=== PATIENT | female | born 1975 | race Caucasian/White ===

== ENCOUNTER 2017-11-05 10:00 | Outpatient (CLI) | payer BC, SELFPAY ==
--- NOTE | 2017-11-11 13:28 | DI.MAMMO_ITS ---
SYMPTOMS/DIAGNOSIS: SCREENING, Z12.31 BILATERAL SCREENING MAMMOGRAM: Mammograms were interpreted according to the usual protocol including computer analysis with CAD system, tomosynthesis and C view imaging. Comparison is made with exams from 2009 and 2015. The breasts are composed of heterogeneously dense fibroglandular tissue, breast density category C. No suspicious masses or suspicious microcalcifications are seen. There has been no significant change. IMPRESSION: Category 1C, negative mammogram. Yearly screening mammography is recommended. [facility] ASSESSMENT OF FINDINGS: Negative. Category 1. Patient will receive a letter notifying them of these results. Bi-RADS category C. The breasts are heterogeneously dense, which may obscure small masses.
== END 2017-11-05 10:20 ==
PROVIDERS: PCP Physician Assistant Medical; Visit Provider Nurse Practitioner Family
DX: Z12.31 Encounter for screening mammogram for malignant neoplasm of breast (principal)
CPT/HCPCS: 77063; 77067

== ENCOUNTER 2017-11-05 16:43 | Outpatient (REF) | payer BC, SELFPAY ==
--- NOTE | 2017-11-05 13:30 | PAPFT_PTH ---
PATIENT: Aida Gonzales LOC: [facility] U#:[id number] AGE/SX: 42/F ROOM: RE11/05/[address]: MURRAY Gross : 1975 BED: DIS: 11/05/2017 SPEC #: [id number] RECD: 11/05/17 17:52 STATUS: ASHLY [place] #: [id number] ANDRES: 11/05/17 13:[address]: Juliet Decker [facility] Cytology RECD BY: Teri Barcenas ENTERED: 11/05/17 17:52 SP TYPE: PAPFT LORENA DR: Sun Rowland MD Tissues: 1 - CX/ENDOCX FOR PAP SMEARS Procedures: PAP THIN PREP/[facility]VM Screening HPV DNA PROBE Comments: [id number]
== END 2017-11-05 17:03 ==
LOC: LBN 16:43
PROVIDERS: PCP Family Medicine; Visit Provider Nurse Practitioner Family
DX: Z12.4 Encounter for screening for malignant neoplasm of cervix (principal); Z11.51 Encounter for screening for human papillomavirus (HPV)
CPT/HCPCS: 88142; 87624

== ENCOUNTER 2018-11-24 14:32 | Outpatient (REF) | payer BC, SELFPAY ==
--- NOTE | 2018-11-24 14:00 | PAPFT_PTH ---
PATIENT: Aida Gonzales LOC: [facility] U#:[id number] AGE/SX: 43/F ROOM: RE11/24/[address]: MURRAY Gross : 1975 BED: DIS: 11/24/2018 SPEC #: [id number] RECD: 11/24/18 18:16 STATUS: ASHLY REQ #: [id number] ANDRES: 11/24/18 14:[address]: Juliet Decker DEPT: [facility] Cytology RECD BY: Teri Barcenas ENTERED: 11/24/18 18:16 SP TYPE: PAPFT LORENA DR: Michael Anaya Tissues: 1 - CX/ENDOCX FOR PAP SMEARS Procedures: PAP THIN PREP/UVM Screening Comments: [id number]
== END 2018-11-24 14:52 ==
LOC: LBN 14:32
PROVIDERS: PCP Physician Assistant Medical; Visit Provider Nurse Practitioner Family
DX: Z12.4 Encounter for screening for malignant neoplasm of cervix (principal)
CPT/HCPCS: 88142

== ENCOUNTER 2018-12-22 01:17 | Outpatient (CLI) | payer BC, SELFPAY ==
--- NOTE | 2018-12-22 11:00 | DI.MAMMO_ITS ---
EXAM: MG MAMMO SCREENING CLINICAL HISTORY: Screening, Z12.39 TECHNIQUE: Mammograms were interpreted according to the usual protocol including computer analysis w [employer] CAD system, tomosynthesis and C-view imaging. COMPARISON: [id number] FINDINGS: The breasts are composed of heterogeneously dense tissue, which may obscure small masses, breast dens ity category C. There are no suspicious masses or suspicious microcalcifications. There has been no significant chagne when compared with prior images. IMPRESSION: Category 1, negative mammogram. Routine yearly screening is recommended. BI-RADS Cat 1 - Negative Breast Density - Category C - Heterogeneously dense
== END 2018-12-22 01:37 ==
PROVIDERS: PCP Physician Assistant Medical; Visit Provider Nurse Practitioner Family
DX: Z12.31 Encounter for screening mammogram for malignant neoplasm of breast (principal)
CPT/HCPCS: 77063; 77067

== ENCOUNTER 2019-10-07 10:47 | Outpatient (REF) | payer SELFPAY ==
[2019-10-07 22:01] LABS: Anion Gap 10.5 mmol/L (3-11); BUN 15 mg/dL (7-18); CO2 23.5 mmol/L (21.0-32.0); CREATININE 0.76 mg/dL (0.55-1.02); Calcium 9.1 mg/dL (8.5-10.1); Calculated LDL 114 mg/dL (<100); Chloride 104 mmol/L (98-107); Cholesterol 197 mg/dL (<200); Glucose 91 mg/dL (74-106); HDL Cholesterol 49 mg/dL (40-60); Potassium 4.1 mmol/L (3.5-5.1); Sodium 138 mmol/L (136-145); Triglyceride 171 mg/dL (<150)
== END 2019-10-07 11:07 ==
LOC: NCHCN 10:47
PROVIDERS: PCP Physician Assistant Medical; Visit Provider Physician Assistant Medical
DX: M79.606 Pain in leg, unspecified (principal); Z00.00 Encounter for general adult medical examination without abnormal findings
CPT/HCPCS: 80048; 80061; 83735

== ENCOUNTER 2019-11-26 16:24 | Outpatient (REF) | payer OTHER, SELFPAY ==
--- NOTE | 2019-11-26 15:45 | PAPFT_PTH ---
PATIENT: Aida Gonzales LOC: [facility] U#:[id number] AGE/SX: 44/F ROOM: RE11/26/[address]: MURRAY Gross : 1975 BED: DIS: 11/26/2019 SPEC #: [id number] RECD: 11/26/19 17:45 STATUS: ASHLY REQ #: [id number] ANDRES: 11/26/19 15:[address]: Juliet Decker DEPT: [facility] Cytology RECD BY: Teri Barcenas ENTERED: 11/26/19 17:46 SP TYPE: PAPFT OTHR DR: Michael Anaya Tissues: 1 - CX/ENDOCX FOR PAP SMEARS Procedures: PAP THIN PREP/UVM Screening HPV DNA PROBE Comments: [id number]
== END 2019-11-26 16:44 ==
LOC: LBN 16:24
PROVIDERS: PCP Physician Assistant Medical; Visit Provider Nurse Practitioner Family
DX: Z12.4 Encounter for screening for malignant neoplasm of cervix (principal); Z11.51 Encounter for screening for human papillomavirus (HPV)
CPT/HCPCS: 88142; 87624

== ENCOUNTER 2019-12-24 02:20 | Outpatient (CLI) | payer OTHER, SELFPAY ==
--- NOTE | 2019-12-24 08:50 | DI.MAMMO_ITS ---
EXAM: MAMMO SCREENING CLINICAL HISTORY: screening TECHNIQUE: Mammograms were interpreted according to the usual protocol including computer analysis w [employer] CAD system, tomosynthesis and C-view imaging. COMPARISON: 2014 through 2018 FINDINGS: The breasts are composed of heterogeneously dense fibroglandular densities, Breast Density category C . No suspicious masses or suspicious microcalcifications are seen. No skin thickening or abnormal axillary lymph nodes are seen. There has been no significant change from prior exams. IMPRESSION: BI-RADS Category 1, Negative mammogram. Yearly screening mammography is recommended. Breast Density Category C, heterogeneously Dense. The mammogram demonstrates the patient's breast tissue is dense. Dense breast tissue is very common a nd is not abnormal but dense breast tissue can make it harder to find cancer on a mammogram. Also, de nse breast tissue may increase breast cancer risk. This information about the result of the mammogram report was provided to the patient to raise their awareness. Use this report when you speak with the patient about their risks for breast cancer, which includes their family history. At that time, you may recommend additional screening tests (Ultrasound or MRI) as they might be useful based on their r isk. A negative radiographic report should not delay biopsy if a dominant or clinically suspicious mass is present. Up to ten percent of cancers are not identified on mammography. A negative report may reinforce clinical impression. Adenosis and dense breasts may obscure an underlying neoplasm. False positive reports average 6 to 10%.
== END 2019-12-24 02:40 ==
PROVIDERS: PCP Physician Assistant Medical; Visit Provider Nurse Practitioner Family
DX: Z12.31 Encounter for screening mammogram for malignant neoplasm of breast (principal)
CPT/HCPCS: 77063; 77067

== ENCOUNTER 2020-12-08 14:07 | Outpatient (REF) | payer OTHER, SELFPAY ==
--- NOTE | 2020-12-08 13:00 | PAPFT_PTH ---
PATIENT: Aida Gonzales LOC: [facility] U#:[id number] AGE/SX: 45/F ROOM: RE12/08/[address]: MURRAY Gross : 1975 BED: DIS: 12/08/2020 SPEC #: [id number] RECD: 12/08/20 17:58 STATUS: ASHLY RES[place] #: [id number] ANDRES: 12/08/20 13:[address]: Juliet Decker DEPT: [facility] Cytology RECD BY: Teri Barcenas ENTERED: 12/08/20 17:58 SP TYPE: PAPFT OTHR DR: Michael Anaya Tissues: 1 - CX/ENDOCX FOR PAP SMEARS Procedures: PAP THIN PREP/UVM Screening HPV DNA PROBE Comments: [id number]
== END 2020-12-08 14:08 | disposition home or self-care (01) ==
LOC: LBN 14:07
PROVIDERS: PCP Physician Assistant Medical; Visit Provider Nurse Practitioner Family
DX: Z12.4 Encounter for screening for malignant neoplasm of cervix (principal); Z11.51 Encounter for screening for human papillomavirus (HPV)
CPT/HCPCS: 88142; 87624

== ENCOUNTER 2021-01-09 00:12 | Outpatient (CLI) | payer OTHER, SELFPAY ==
--- NOTE | 2021-01-09 09:12 | DI.MAMMO_ITS ---
Exam(s) MAMMO SCREENING EXAM: MAMMO SCREENING CLINICAL HISTORY: screening,z12.39 TECHNIQUE: Bilateral full field digital CC and MLO mammographic images were obtained with 3D tomosyn thesis and utilizing computer aided detection (CAD). COMPARISON: Available for comparison. FINDINGS: Masses/Architectural Distortion: No suspicious masses or areas of architectural distortion are seen. There are some stable well-circumscribed nodules in both breasts. Microcalcifications: No suspicious pleomorphic-type are seen. Skin Thickening/Nipple Retraction: None. IMPRESSION: 1. No significant interval change with no specific features of malignancy noted. 2. Unless there is more urgent need, screening mammography is recommended, as per [employer] guidelines. BI-RADS Category 2 - Benign Findings Breast Density - Category C - Heterogeneously dense Breast density category C or D implies that the patient has dense breast tissue. Dense breast tissue is very common and is not abnormal but dense breast tissue can make it harder to find cancer on a ma mmogram. Also, dense breast tissue may increase their breast cancer risk. This information about the result of the mammogram report was provided to the patient to raise their awareness. Use this report when you speak with the patient about their risks for breast cancer, which includes their family hist ory. At that time, you may recommend for more screening tests (Ultrasound or MRI) as they might be us eful based on their risk. A negative radiographic report should not delay biopsy if a dominant or clinically suspicious mass is present. Up to ten percent of cancers are not identified on mammography. A negative report may reinforce clinical impression. Adenosis and dense breasts may obscure an underlying neoplasm. False positive reports average 6 to 10%. Patient will receive a letter notifying them of these results.
== END 2021-01-09 00:32 ==
PROVIDERS: PCP Physician Assistant Medical; Visit Provider Nurse Practitioner Family
DX: Z12.39 Encounter for other screening for malignant neoplasm of breast (principal); R92.8 Other abnormal and inconclusive findings on diagnostic imaging of breast
CPT/HCPCS: 77063; 77067

== ENCOUNTER 2021-03-28 03:07 | Outpatient (CLI) | payer OTHER, SELFPAY ==
--- NOTE | 2021-03-28 12:53 | DI.RAD_ITS ---
Exam(s) XR HIP PELVIS ADULT BL EXAM: XR HIP PELVIS ADULT BL CLINICAL HISTORY: BILAT HIP PAIN M25.559. TECHNIQUE: 2D digital imaging was performed of the pelvis and bilateral hips. Three images were obt ained. AP pelvis and lateral views of both hips were obtained. COMPARISON: No exams were available for comparison FINDINGS: BONES: No acute fracture is present. No bony destructive lesion is seen. JOINTS: No dislocation present. SOFT TISSUE: Normal. IMPRESSION: Unrmarkable radiographs of bilat hips. Unremarkable radiographs of the pelvis DATA REPOSITORY: RADIATION DOSE DELIVERED:
--- NOTE | 2021-03-28 12:53 | DI.RAD_ITS ---
Exam(s) XR CERVICAL SPINE COMP 4-5V EXAM: XR CERVICAL SPINE COMP 4-5V CLINICAL HISTORY: CHRONIC NECK PAIN M54.2. TECHNIQUE: 2D digital imaging was performed. COMPARISON: No exams were available for comparison FINDINGS: The odontoid is intact. The lateral masses are well aligned. There is normal alignment of the cervi humberto spine. The vertebral bodies, disc spaces and posterior elements are well maintained. No acute f racture or subluxation is present. No significant neural foraminal stenosis is present. The cervical thoracic junction is well maintained. The prevertebral soft tissues are unremarkable. Lung apices a re clear. IMPRESSION: Unremarkable radiographs of the cervical spine. DATA REPOSITORY: RADIATION DOSE DELIVERED:
== END 2021-03-28 03:27 ==
PROVIDERS: PCP Physician Assistant Medical; Visit Provider Physician Assistant Medical
DX: M25.551 Pain in right hip (principal); M25.552 Pain in left hip; M54.2 Cervicalgia; G89.29 Other chronic pain
CPT/HCPCS: 73521; 72050

== ENCOUNTER → 2021-08-17 03:09 | Outpatient (CLI) | payer OTHER, SELFPAY ==
[2021-08-17 10:05] VITALS: BP 116/71; PULSE 74; RESP 20; TEMP 36.2; O2SAT 98
--- NOTE | 2021-08-17 10:15 | DI.US_ITS ---
Exam(s) US PAIN CLINIC NEEDLE GUIDANCE EXAM: PIRIFORMIS SYNDROME OF BOTH SIDES COMPARISON: None TECHNIQUE: Ultrasound performed using standard protocol. FINDINGS: Ultrasound guidance was provided for right piriformis needle placement for therapeutic injection. Ra diologist was not present for this procedure. IMPRESSION: DATA REPOSITORY:
[2021-08-17] MEDS: methylPREDNISolone ACETATE 40 MG/ML VIAL IJ (10:53)
[2021-08-17] MEDS: Lidocaine 2% Pres-Free 2 ML VIAL IJ (10:53)
[2021-08-17 10:54] VITALS: PULSE 77; O2SAT 97
--- NOTE | 2021-08-17 13:05 | PDOC.PAIN_ITS ---
Pain Clinic Procedure Note Procedure Note Procedure Note: ULTRASOUND GUIDED BILATERAL PIRIFORMIS MUSCLE TRIGGER POINT INJECTIONS Pre-Procedural Evaluation: Aida Gonzales has been referred to the [facility] for an Ultrasound Guided bilateral piriformis muscle trigger point injections for a chief complaint of buttock and leg pain. Pre-procedure Pain Score: 4/10 Dx: Piriformis syndrome and Muscle pain Patient was interviewed and the medical record reviewed. There were no medical, pharmacologic, radiographic, or other structural contraindications to preforming an ultrasound guided injection. Risks and expected side effects as well as potential benefits of the procedure were reviewed. The patient consent form was signed and witnessed. Standard time-out procedure was performed. The use of direct ultrasound visualization of the needle (rather than a non- guided injection) was required to increase patient safety by excluding inadvertent intramuscular, intratendinous, or intraneural needle placement and minimizing bleeding by avoiding osteochondral or vascular injury from the needle. Additionally, the increased accuracy of placement may increase clinical effectiveness and will allow higher diagnostic specificity when evaluating effectiveness of this injection. Procedure Description: The patient was placed in the Prone position and automated blood pressure cuff and pulse oximeter applied for monitoring during the procedure and recorded in the medical record. Pre-injection ultrasound scanning of the area of interest was performed using a linear transducer, identifying relevant anatomy, landmarks, and neurovascular structures allowing for optimal needle path. The site was then prepared in the usual sterile fashion, using thorough Chlorhexadine preparation of the skin and sterile draping. The same ultrasound transducer was then passed into the sterile field using sterile probe cover and sterile ultrasound gel. The injection target was again visualized. Skin and subcutaneous tissues were anesthetized with 3 mL of 1% Lidocaine. A 21G [employer] Ultrasound 3.5 needle was placed under live ultrasound guidance, using an in-plane approach, to the target area. After visualization of the needle tip at the target area, 1/2 cc of Depomedrol (40 mg/cc) followed by 3 c of 2% Lidocaine was injected to each Piriformis muscle after negative aspiration for blood. Ultrasound images were captured and stored for documentation purposes. Post-procedure Pain Score:0/10 Vital signs were stable throughout the procedure and were as recorded in the docflowsheet by the nursing staff. Follow up plans and appointments were discussed with the patient.Post procedure instruction was given as documented in nursing documentation and having met discharge criteria, they were discharged from the Pain Management [facility]. COMMENTS: She did very well with the procedure Haroon Marion DO, MPH [facility]
== END ==
PROVIDERS: PCP Physician Assistant Medical; Visit Provider Preventive Medicine Occupational Medicine
DX: G57.03 Lesion of sciatic nerve, bilateral lower limbs (principal)
CPT/HCPCS: 20610; 76942; J1030

== ENCOUNTER 2021-12-13 16:36 | Outpatient (REF) | payer OTHER, SELFPAY ==
--- NOTE | 2021-12-13 16:05 | PAPFT_PTH ---
PATIENT: Aida Gonzales LOC: [facility] U#:[id number] AGE/SX: 46/F ROOM: RE12/13/[address]: Felicita Verde MD : 1975 BED: DIS: 12/13/2021 SPEC #: [id number] RECD: 12/13/21 17:49 STATUS: ASHLY REQ #: [id number] ANDRES: 12/13/21 16:[address]: Felicita Verde [facility] Cytology RECD BY: Teri Barcenas ENTERED: 12/13/21 17:49 SP TYPE: PAPFT OTHR DR: Michael Anaya Tissues: 1 - CX/ENDOCX FOR PAP SMEARS Procedures: PAP THIN PREP/UVM Screening HPV DNA PROBE Comments: [id number]
== END 2021-12-13 16:37 | disposition home or self-care (01) ==
LOC: LBN 16:36
PROVIDERS: PCP Physician Assistant Medical; Visit Provider Obstetrics & Gynecology
DX: Z12.4 Encounter for screening for malignant neoplasm of cervix (principal); Z11.51 Encounter for screening for human papillomavirus (HPV)
CPT/HCPCS: 88142; 87624

== ENCOUNTER → 2022-01-10 02:28 | Outpatient (CLI) | payer OTHER, SELFPAY ==
--- NOTE | 2022-01-10 16:30 | DI.MAMMO_ITS ---
Exam(s) MAMMO SCREENING EXAM: MAMMO SCREENING CLINICAL HISTORY: screening TECHNIQUE: Bilateral full field digital CC and MLO mammographic images were obtained with 3D tomosyn thesis and utilizing computer aided detection (CAD). COMPARISON: Available for comparison. FINDINGS: Masses/Architectural Distortion: There is a new nodular density 5 cm from the nipple in the outer rig ht breast on the CC view. There is a 5 mm nodule in the inferior right breast on the MLO view 3 cm f rom the nipple. These were not apparent on the prior examinations. Microcalcifications: No suspicious pleomorphic-type are seen. Skin Thickening/Nipple Retraction: None. IMPRESSION: 1. Two right breast nodules which should be further evaluated. 2. Spot compression views are requested. Ultrasound may be indicated at that time. BI-RADS Category 0 - Assessment Incomplete: Need additional imaging evaluation Breast Density - Category C - Heterogeneously dense Breast density category C or D implies that the patient has dense breast tissue. Dense breast tissue is very common and is not abnormal but dense breast tissue can make it harder to find cancer on a ma mmogram. Also, dense breast tissue may increase their breast cancer risk. This information about the result of the mammogram report was provided to the patient to raise their awareness. Use this report when you speak with the patient about their risks for breast cancer, which includes their family hist ory. At that time, you may recommend for more screening tests (Ultrasound or MRI) as they might be us eful based on their risk. A negative radiographic report should not delay biopsy if a dominant or clinically suspicious mass is present. Up to ten percent of cancers are not identified on mammography. A negative report may reinforce clinical impression. Adenosis and dense breasts may obscure an underlying neoplasm. False positive reports average 6 to 10%. Patient will receive a letter notifying them of these results.
== END ==
PROVIDERS: PCP Physician Assistant Medical; Visit Provider Obstetrics & Gynecology
DX: Z12.31 Encounter for screening mammogram for malignant neoplasm of breast (principal); R92.8 Other abnormal and inconclusive findings on diagnostic imaging of breast
CPT/HCPCS: 77063; 77067

== ENCOUNTER → 2022-01-15 03:23 | Outpatient (CLI) | payer OTHER, SELFPAY ==
--- NOTE | 2022-01-15 10:15 | DI.MAMMO_ITS ---
Exam(s) MAMMO SCREEN CALL BACK UNI EXAM: MAMMO SCREEN CALL BACK UNI CLINICAL HISTORY: F/U ABNL MAMMO, TWO RT BREAST NODULES TECHNIQUE: Spot compression views with tomographic imaging were performed. COMPARISON: 2014 through recent exam on 10 January 2022. FINDINGS: Cc and MLO spot compression views were performed for 2 areas of asymmetric density.No suspicious mass es or suspicious microcalcifications are seen. No persistent abnormality is seen on the additional views performed. The findings are consistent wit h overlying fibroglandular tissue. There has been no significant change from prior exams. IMPRESSION: BI-RADS Category 1, Negative Yearly screening mammography is recommended. Breast Density - Category C - Heterogeneously dense
== END ==
PROVIDERS: PCP Physician Assistant Medical; Visit Provider Obstetrics & Gynecology
DX: Z12.31 Encounter for screening mammogram for malignant neoplasm of breast (principal); R92.8 Other abnormal and inconclusive findings on diagnostic imaging of breast
CPT/HCPCS: 77063; 77067

== ENCOUNTER 2022-02-05 16:04 | Outpatient (REF) | payer OTHER, SELFPAY ==
[2022-02-05 16:11] LABS: HCT 38.4 % (36.0-46.0); HGB 13.5 g/dL (11.2-15.7); MCH 32.5 pg (27.0-33.0); MCHC 35.2 % (32.0-36.0); MCV 93 fL (80-95); MPV 10.4 fL (8.0-11.0); Platelet Count 206 10^3/uL (130-400); RBC 4.15 10^6/uL (3.93-5.22); RDW 11.3 % (11.7-14.6); RDW-SD 38.5 fL; WBC 5.99 10^3/uL (4.4-10.8)
[2022-02-05 16:29] LABS: ALT 26 U/L (14-59); AST 18 U/L (15-37); Albumin 3.9 g/dL (3.4-5.0); Alkaline Phosphatase 48 U/L (46-116); Anion Gap 10.7 mmol/L (3-11); BUN 26 mg/dL (7-18); Bilirubin, Total 0.4 mg/dL (0.2-1.0); CO2 27.3 mmol/L (21.0-32.0); CREATININE 0.8 mg/dL (0.55-1.02); Calculated LDL 93 mg/dL (<100); Chloride 100 mmol/L (98-107); Cholesterol 192 mg/dL (<200); Estimated GFR 91.97 (mL/min/1.73m2); Glucose 95 mg/dL (74-106); HDL Cholesterol 55 mg/dL (40-60); Potassium 3.8 mmol/L (3.5-5.1); Sodium 138 mmol/L (136-145); Total Protein 7.5 g/dL (6.4-8.2); Triglyceride 222 mg/dL (<150)
== END 2022-02-05 16:05 | disposition home or self-care (01) ==
LOC: NCHCN 16:04
PROVIDERS: PCP Physician Assistant Medical; Visit Provider Physician Assistant Medical
DX: G43.909 Migraine, unspecified, not intractable, without status migrainosus (principal); Z00.00 Encounter for general adult medical examination without abnormal findings
CPT/HCPCS: 80053; 80061; 85027; 84443

== ENCOUNTER 2022-04-12 12:51 | Day surgery (SDC) | payer OTHER, SELFPAY ==
--- NOTE | 2022-04-12 10:07 | W.PM.DSUDISC ---
Date of service: 04/12/22 Time of Service: 15:07 Discharge Plan Disposition Patient Disposition: Home Condition: Good Discharge Details Reason For Visit: Screening colonoscopy Attending Provider: Darius Isidro Primary Care Provider: Michael Anaya Home Meds and New Rx's Prescriptions: Continued ascorbic acid (vitamin C) 500 mg capsule 500 mg PO DAILY calcium carbonate [Calcium 500] 500 mg calcium (1,250 mg) tablet,chewable 500 mg PO DAILY magnesium 250 mg tablet 500 mg PO DAILY Patient Comments: 12/13/21- pt unsure of dose L norgest/e.estradiol-e.estrad [Jaimiess] 0.15 mg-30 mcg (84)/10 mcg (7) tablets,dose pack,3 month See Rx Instructions .ROUTE .COMPLEX Qty: 182 3RF Dose Instruction: TAKE ONE TABLET BY MOUTH EVERY DAY Rx Instructions: TAKE ONE TABLET BY MOUTH EVERY DAY Discontinued polyethylene glycol 3350 17 gram/dose powder 238 g PO ONCE Qty: 238 0RF Rx Instructions: take per colonoscopy instructions bisacodyl [Dulcolax (bisacodyl)] 5 mg tablet,delayed release (DR/EC) 5 mg PO ONCE Qty: 4 0RF Rx Instructions: take per colonoscopy instructions Discharge Instructions Additional Instructions: Aida, we were able to complete your colonoscopy without any difficulty today. The quality of your preparation was excellent. We had good visualization, and I did not see any evidence of polyps or cancers because your colonoscopy is normal, you should have another one in 10 years. Please feel free to call me at any point if you have any questions at all. 1. If tolerated, consume a soft, low fiber diet for 1-2 days. 2. Do not drive, drink alcohol, operate machinery, make critical decisions, or do activities that require coordination or balance for 24 hours. 3. Because air was put into your colon during the procedure, expelling air from your rectum (passing gas or farting) is normal. 4. You may not have a bowel movement for 1-3 days because of the colonoscopy prep. This is normal. 5. Go directly to the emergency room if you notice any of the following: Develop chills (warm to touch), or if you have a thermometer and your temperature is above 101 Difficulty breathing or difficultly swallowing Persistent vomiting Severe abdominal pain, other than gas cramps Severe chest pain Black, tarry stools Any bleeding ? exceeding one tablespoon 6. Call your physician if the site where your intravenous was started becomes red, swollen, painful, and warm to touch. 7. Your physician has reviewed your pre-procedure medications. Please continue to take those medications as previously ordered. You will be given specific information/education regarding any changes to your medications before leaving. Activity:: Activity as Tolerated Diet:: As Tolerated Discharge Orders Discharge Orders: Discharge Order (Routine); Ordered 04/12/22 Ordered By: Darius Isidro DS: Diagnosis Discharge Diagnosis (1) Colon cancer screening: Status: Acute Asessment and Plan: Normal colonoscopy. Repeat the test in 10 years to reduce the chance of from colon cancer
--- NOTE | 2022-04-12 10:09 | COLE_ITS ---
Date of service: 04/12/22 Time of Service: 15:30 Colonoscopy Report Date of procedure: 04/12/22 Pre-op diagnosis general: Screening colonoscopy Post-op diagnosis procedure note: same Procedure: Colonoscopy Surgeon: Darius Isidro Anesthesia Type: General:No Airway Estimated blood loss (mL): 0 Pathology: none sent Complications: None Disposition: same day Indications: Aida is a 46-year-old woman here for her screening colonoscopy Prep: Miralax/Dulcolax Procedure Start Time: 14:44 Procedure End Time: 15:01 Retraction Time: 11 Findings: Normal colonoscopy Procedure Description: After the induction of monitored anesthetic care, and with the patient in left lateral decubitus position, I began by performing an external anorectal exam.? Perineum and skin were normal, as was the anal verge.? There was no evidence of external hemorrhoids.? Next, I performed a digital rectal exam.? I did not appreciate any abnormal findings.? Next, I advanced a colonoscope into the rectal vault.? I performed retroflexion.? This appeared normal.? Using insufflation, I then advanced the colonoscope beyond the rectal folds and into the sigmoid colon before advancing towards the cecum.? The quality of the prep was excellent.? The scope was noted to be in the cecum by identification of the ileocecal valve and appendiceal orifice.? I then began withdrawing the colonoscope using repeated irrigation as necessary for full evaluation of the co lonic mucosa. ?Once the scope was withdrawn to the level of the rectum, great care was taken to examine portions of the rectal folds.? Finally, the scope was withdrawn and the patient was brought to the same-day surgery recovery unit as the anesthetic wore off. ?The findings and instructions were shared with the patient prior to discharge.
[2022-04-12 13:13] VITALS: BP 126/78; PULSE 82; RESP 16; TEMP 36.8; O2SAT 98
[2022-04-12] MEDS: Lactated Ringers 1,000 ML 80 ML IV (13:30)
--- NOTE | 2022-04-12 14:27 | ANES.PREOP_ITS ---
General Info Date of Service Date Performed: 04/12/22 Height: 5 ft 2 in Weight: 69.5 kg Body Mass Index (BMI): 28.0 Surgical Procedure: Operation Date: 04/12/22 14:35 Proposed Procedure Side Surgeon p Colonoscopy possible Polypectomy Darius Isidro MD Meds Allergies and Home Medications Allergies Allergy/AdvReac Type Severity Reaction Status Date / Time No Known Allergies Allergy Verified 04/10/22 11:29 Home Medication Medication Instructions Recorded calcium carbonate 500 mg calcium 500 mg PO DAILY 12/13/21 (1,250 mg) chewable tablet (Calcium 500) magnesium 250 mg tablet 500 mg PO DAILY 12/13/21 L norgest/E estradiol-E estrad See Rx Instructions .Route 01/29/22 0.15 mg-30 mcg (84)/10 mcg(7) .COMPLEX #182 tabs tabs,3mos (Jaimiess) ascorbic acid (vitamin C) 500 mg 500 mg PO DAILY 04/02/22 capsule Current Visit Medications: Current Medications Generic Name Dose Route Start Last Admin Trade Name Natalya PRN Reason Stop Dose Admin Hyoscyamine Sulfate 0.125 mg 04/12/22 10:10 Hyoscyamine 0.125 Mg Sl/Oral/Chew SL DIRECTED PRN Ringer's Solution 1,000 mls @ 80 mls/hr 04/12/22 06:00 04/12/22 13:30 IV 05/11/22 23:59 80 mls/hr INFUSION NINA Administration IV Miscellaneous Supplies 1 each 04/12/22 06:00 Iv Access IV 05/11/22 23:59 DIRECTED NINA Ondansetron HCl 4 mg 04/12/22 10:10 Ondansetron 4 Mg/2 Ml Vial IVP Q4H PRN PRN Nausea / Vomiting Sodium Chloride 0 ml 04/12/22 06:00 Normal Saline Flush 10 Ml Syr IV 05/11/22 23:59 PRN PRN Sodium Chloride 0 ml 04/12/22 06:00 Normal Saline 10 Ml Vial IJ 05/11/22 23:59 DIRECTED PRN Sterile Water 0 ml 04/12/22 06:00 Water,Injection,Sterile 10 Ml Vial IJ 05/11/22 23:59 DIRECTED PRN PFSH Active Problems Active Problems: Problem Status Onset Code Contraception Z30.9 Piriformis syndrome of both sides G57.03 Facial rash R21 Migraine headache G43.909 Colon cancer screening Z12.11 Medical History Medical History Bilateral hip pain Chronic neck pain Narcolepsy per pt. under control Oral contraception, patch and vaginal ring; maintain adherence and surveillance Stress at work Tobacco Smoking/Tobacco Use Status: Never Alcohol Alcohol Intake: current Alcohol intake frequency: holidays/special occasions only Substance Use Substance use: Never Substance use type: does not use Prental History History 1 Para 1 Hx # Term Pregnancies 1 Multiple births Hx # Pregnancies Ectopic pregnancies AB induced Hx Number of Living Children 1 AB spontaneous Past Pregnancies Del. Date GA/Weeks # Preg Succ Route Wgt Sex Labor Lgth Anesth esia Location Prov Complic 07/29/01 41 No Yes vaginal 4422.526 g Female NVR H Vital Signs and Lab Results Vital Signs Most Recent Vital Signs in EMR: Most Recent Vital Signs Temp Pulse Resp BP Pulse Ox 36.8 C 82 16 126/78 98 04/12/22 13:13 04/12/22 13:13 04/12/22 13:13 04/12/22 13:13 04/12/22 13:13 Point of Care Results Point of Care Results: POC- Test(urine) Negative 04/12/22 13:20 Lab Results Blood Type / Crossmatch: No Data to Display Complete Blood Count: No Data to Display Complete Metabolic Panel: No Data to Display Liver Function Panel: No Data to Display Coagulation Panel: No Data to Display Cardiac Panel: No Data to Display Arterial Blood Gas: No Data to Display Venous Blood Gas: No Data to Display Pancreas Panel: No Data to Display Thyroid Panel: No Data to Display Infectious Disease: No Data to Display Blood Cultures: No Data to Display Toxicology Panel: No Data to Display Panel: No Data to Display Anesthesia Assessment and Plan Anesthesia History Personal History: No History of Anesthesia Complications Family History: No Family History of Anesthesia Complications Exercise Tolerance Exercise Tolerance: Metabolic Equivalents>4 Pertinent Negatives Pertinent Negatives: No Symptoms of GERD, No Major Cardiovascular Symptoms or Complaints and No Major Pulmonary Symptoms or Complaints Cardiac & Pulmonary Exam Cardiac Exam: Normal S1/S2 Heart Sounds Pulmonary Exam: Clear Bilateral Breath Sounds Implantable Cardiac Device Does patient have a Pacemaker or an ICD?: No Airway Exam Known Difficult Airway: No Mallampati Class: 1 Mouth Opening: Normal (> 3cm) Thyromental Distance: Greater than 3 cm Neck Range of Motion: Full ROM Neck Circumference: Normal Teeth Condition: Normal Dentition ASA Classification ASA Score: ASA 2 Emergency Case?: No NPO Status NPO Status: NPO Clears >2 hours, Solids >8 hours Status Status: Negative HCG Anesthesia Plan Resuscitation Status: Full Code Anesthesia Technique: General Anesthesia Airway Planned: Natural Airway Monitors Used: Standard Monitors
[2022-04-12 14:29] VITALS: BMI 28.0
[2022-04-12 15:08] VITALS: BP 114/63; PULSE 77; RESP 16; TEMP 36.9; O2SAT 98
--- NOTE | 2022-04-12 15:11 | W.ANESPOSTOP ---
Postoperative Evaluation Date, Time and Location Date Performed: 04/12/22 Time Performed: 15:11 Patient Location: Day Surgery Unit Vital Signs Most Recent Imported Vital Signs: Most Recent Vital Signs Temp Pulse Resp BP Pulse Ox 36.9 C 77 16 114/63 98 04/12/22 15:08 04/12/22 15:08 04/12/22 15:08 04/12/22 15:08 04/12/22 15:08 Pain Score Most Recent Pain Score: Most Recent Pain Score Pain Level 0 04/12/22 15:08 Assessment Mental Status: Awake (Alert & Oriented to Patient Baseline) Airway and Respiratory Function: Patent airway with normal (patient baseline) respiratory exam Cardiovascular Function: Hemodynamically Stable Hydration Status: Adequately Hydrated Nausea & Vomiting: No Nausea or Vomiting Pain: Pt. Denies Any Pain Peripheral Nerve Block: Patient did not receive a nerve block
[2022-04-12 15:35] VITALS: BP 120/70; PULSE 56; RESP 16; TEMP 36.5; O2SAT 99
== END 2022-04-12 15:45 | disposition home or self-care (01) ==
PROVIDERS: PCP Physician Assistant Medical; Visit Provider Surgery
PROC: 0DJD8ZZ Inspection of Lower Intestinal Tract, Via Natural or Artificial Opening Endoscopic (ICD-10-PCS; CPT 45378; principal; 2022-04-12 14:30)
DX: Z12.11 Encounter for screening for malignant neoplasm of colon (principal)
CPT/HCPCS: 45378; 81025

== ENCOUNTER → 2022-10-17 01:55 | Outpatient (CLI) | payer OTHER, SELFPAY ==
--- NOTE | 2022-10-17 | DI.RAD_ITS ---
Exam(s) XR HIP LT COMPLETE AP PELVIS EXAM: XR HIP LT COMPLETE AP PELVIS CLINICAL HISTORY: LT HIP PAIN NOT RESPONDING TO CONSERVATIVE TREATMENT. TECHNIQUE: 2D digital imaging was performed. Two views. COMPARISON: CR XR HIP PELVIS ADULT BL from 03/28/2021 FINDINGS: BONES: No acute fracture is present. No bony destructive lesion is seen. JOINTS: No dislocation present. The joint spaces are maintained. There is no significant periartic ular spurring. SI joints and pubic symphysis are. SOFT TISSUE: Normal. IMPRESSION: Unremarkable radiographs of the left hip. DATA REPOSITORY: RADIATION DOSE DELIVERED:
== END ==
PROVIDERS: PCP Physician Assistant Medical; Visit Provider Chiropractor
DX: M25.552 Pain in left hip (principal)
CPT/HCPCS: 73502

== ENCOUNTER 2022-12-14 09:34 | Outpatient (REF) | payer OTHER, SELFPAY ==
--- NOTE | 2022-12-14 08:45 | PAPFT_PTH ---
PATIENT: Aida Gonzales LOC: [facility] U#:[id number] AGE/SX: 47/F ROOM: RE12/14/[address]: Felicita Verde MD : 1975 BED: DIS: 12/14/2022 SPEC #: [id number] RECD: 12/14/22 12:59 STATUS: ASHLY REQ #: [id number] ANDRES: 12/14/22 08:[address]: Felicita Verde DEPT: [facility] Cytology RECD BY: Teri Barcenas ENTERED: 12/14/22 13:00 SP TYPE: PAPFT OTHR DR: Michael Anaya Tissues: 1 - CX/ENDOCX FOR PAP SMEARS Procedures: PAP THIN PREP/UVM Screening HPV DNA PROBE Comments: [id number]
== END 2022-12-14 09:35 | disposition home or self-care (01) ==
LOC: LBN 09:34
PROVIDERS: PCP Physician Assistant Medical; Visit Provider Obstetrics & Gynecology
DX: Z12.4 Encounter for screening for malignant neoplasm of cervix (principal); Z11.51 Encounter for screening for human papillomavirus (HPV); R87.610 Atypical squamous cells of undetermined significance on cytologic smear of cervix (ASC-US)
CPT/HCPCS: 88142; 87624

== ENCOUNTER → 2023-01-17 04:03 | Outpatient (CLI) | payer OTHER, SELFPAY ==
--- NOTE | 2023-01-17 07:49 | DI.MAMMO_ITS ---
Exam(s) MAMMO SCREENING EXAM: MAMMO SCREENING CLINICAL HISTORY: screening TECHNIQUE: Mammograms were interpreted according to the usual protocol including computer analysis w Piki CAD system, tomosynthesis and C-view imaging. COMPARISON: 2014 through 2021 FINDINGS: The breasts are composed of scattered fibroglandular densities, Breast Density category B. No suspicious masses or suspicious microcalcifications are seen. No skin thickening or abnormal axillary lymph nodes are seen. There has been no significant change from prior exams. IMPRESSION: BI-RADS Category 1, Negative mammogram Yearly screening mammography is recommended. Breast Density - Category B, scattered fibroglandular densities. A negative radiographic report should not delay biopsy if a dominant or clinically suspicious mass is present. Up to ten percent of cancers are not identified on mammography. A negative report may reinforce clinical impression. Adenosis and dense breasts may obscure an underlying neoplasm. False positive reports average 6 to 10%. Patient will receive a letter notifying them of these results.
== END ==
PROVIDERS: PCP Physician Assistant Medical; Visit Provider Obstetrics & Gynecology
DX: Z12.31 Encounter for screening mammogram for malignant neoplasm of breast (principal); R92.323 Mammographic fibroglandular density, bilateral breasts
CPT/HCPCS: 77063; 77067

== ENCOUNTER 2023-02-06 02:56 | Outpatient (CLI) | payer OTHER, SELFPAY ==
[2023-02-06 07:41] LABS: ESR 3 mm/hr (0-20)
[2023-02-06 08:06] LABS: Hemoglobin A1C 4.9 % (<5.7)
[2023-02-06 08:25] LABS: ALT 26 U/L (14-59); AST 15 U/L (15-37); Alkaline Phosphatase 42 U/L (46-116); Anion Gap 10.4 mmol/L (3-11); BUN 11 mg/dL (7-18); Bilirubin, Total 0.7 mg/dL (0.2-1.0); C-Reactive Protein 0.84 mg/dL (0.0-0.3); CO2 26.6 mmol/L (21.0-32.0); CREATININE 0.9 mg/dL (0.55-1.02); Calcium 9.3 mg/dL (8.5-10.1); Chloride 104 mmol/L (98-107); Estimated GFR 79.35 (mL/min/1.73m2); Glucose 113 mg/dL (74-106); Potassium 3.8 mmol/L (3.5-5.1); Sodium 141 mmol/L (136-145); Total Protein 7.6 g/dL (6.4-8.2)
[2023-02-08 11:28] LABS: Dexamethasone Suppression 1.3 ug/dL (See Note)
== END 2023-02-06 02:57 | disposition home or self-care (01) ==
LOC: LBO 02:56
PROVIDERS: PCP Physician Assistant Medical; Visit Provider Physician Assistant Medical
DX: M62.81 Muscle weakness (generalized) (principal)
CPT/HCPCS: 36415; 80053; 85652; 82533; 83036; 86140

== ENCOUNTER 2023-12-17 17:51 | Outpatient (REF) | payer OTHER, SELFPAY ==
--- NOTE | 2023-12-16 14:50 | PAPFT_PTH ---
PATIENT: Aida Gonzales LOC: [facility] U#:[id number] AGE/SX: 48/F ROOM: RE12/17/[address]: Felicita Verde MD : 1975 BED: DIS: 12/17/2023 SPEC #: [id number] RECD: 12/17/23 18:16 STATUS: ASHLY REQ #: [id number] ANDRES: 12/16/23 14:[address]: Felicita Verde [facility] Cytology RECD BY: Teri Barcenas ENTERED: 12/17/23 18:16 SP TYPE: PAPFT OTHR DR: Michael Anaya Tissues: 1 - CX/ENDOCX FOR PAP SMEARS Procedures: PAP THIN PREP/UVM Screening HPV DNA PROBE Comments: [id number] (HPV 16 & 18/45)
== END 2023-12-17 17:52 | disposition home or self-care (01) ==
LOC: LBN 17:51
PROVIDERS: PCP Physician Assistant Medical; Visit Provider Obstetrics & Gynecology
DX: Z12.31 Encounter for screening mammogram for malignant neoplasm of breast (principal); Z01.419 Encounter for gynecological examination (general) (routine) without abnormal findings; Z87.42 Personal history of other diseases of the female genital tract
CPT/HCPCS: 88142; 87624

== ENCOUNTER 2024-01-20 01:38 | Outpatient (CLI) | payer OTHER, SELFPAY ==
--- NOTE | 2024-01-20 08:00 | DI.MAMMO_ITS ---
Exam(s) MAMMO SCREENING EXAM: MAMMO SCREENING CLINICAL HISTORY: screening. TECHNIQUE: Bilateral full field digital CC and MLO mammographic images were obtained with 3D tomosyn thesis and utilizing computer aided detection (CAD). COMPARISON: Prior mammograms were reviewed. FINDINGS: Fibroglandular tissue pattern is again noted be moderately dense. Inferiorly in the right breast an asymmetric nodular density measuring 5 x 4 mm located approximately 5 cm in from the nipple on the CC view. Spot compression view and ultrasound recommended. In the opposite-left breast there is a nodular density measuring 7 x 6 mm located 8 cm in from the ni pple on CC view at approximately 6 o'clock position, unchanged from at least 2020 and there also a fe w others small benign-appearing nodules left breast which also appears stable, both medially and late rally. There are no new spiculated masses nor malignant-appearing microcalcification groups in either breast . There is no significant architectural distortion nor skin thickening-retraction. IMPRESSION: Moderately dense bilateral fibroglandular tissue. Stable benign-appearing left breast nodules. Poss ible new 5 x 4 mm nodule in the right breast as described above. Spot compression right breast CC vi ew and breast ultrasound recommended BI-RADS Category 0 - Incomplete: Need additional imaging evaluation Breast Density - Category C - Heterogeneously dense Breast density Category C or D implies that the patient has dense breast tissue. Dense breast tissue can make it harder to find cancer on a mammogram. Dense breast tissue is also associated with an incr eased risk of breast cancer. This information about the result of the mammogram report was provided to the patient to raise their awareness. Use this report when you speak with the patient about their risks for breast cancer, which includes their family history. At that time, you may recommend additional screening tests (Ultrasoun d or MRI) as these tests may add significant information. A negative radiographic report should not delay biopsy if a dominant or clinically suspicious mass is present. Up to ten percent of cancers are not identified on mammography. A negative report may reinforce clinical impression. Adenosis and dense breasts may obscure an underlying neoplasm. False positive reports average 6 to 10%. Patient will receive a letter notifying them of these results.
== END 2024-01-20 01:58 ==
LOC: DI 01:39
PROVIDERS: PCP Physician Assistant Medical; Visit Provider Obstetrics & Gynecology
DX: Z12.31 Encounter for screening mammogram for malignant neoplasm of breast (principal); R92.333 Mammographic heterogeneous density, bilateral breasts; R92.323 Mammographic fibroglandular density, bilateral breasts; D24.2 Benign neoplasm of left breast
CPT/HCPCS: 77063; 77067

== ENCOUNTER 2024-01-22 01:55 | Outpatient (CLI) | payer OTHER, SELFPAY ==
--- NOTE | 2024-01-22 | DI.MAMMO_ITS ---
Exam(s) MG MAMMO SCREEN CALL BACK UNI US BREAST RT COMPLETE EXAM: MG MAMMO SCREEN CALL BACK UNI-RIGHT AND COMPLETE RIGHT BREAST ULTRASOUND CLINICAL HISTORY: F/U MAMMO, R92.8,RT ASYMMETRIC NODULAR DENSITY. TECHNIQUE: Unilateral RIGHT BREAST spot mammographic images obtained with 3D tomosynthesisand utiliz ing computer aided detection (CAD). . Complete RIGHT breast Ultrasound was also performed, including all 4 quadrants, the retroareolar prasanna on, and the ipsilateral axilla. COMPARISON: Prior mammograms were reviewed. This additional imaging was performed due to findings described on the recent screening mammogram of 01/20/2024. FINDINGS: DIAGNOSTIC MAMMOGRAM: Additional mammographic views performed todaydoes not dissipate this small nodular finding described on the screening mammogram. We proceeded with ultrasound... COMPLETE RIGHT BREAST ULTRASOUND: Ultrasound performed today reveals a solitary finding which is at the 6 o'clock position and correspo nds to the finding on the mammogram. This has appearance of a conglomeration of microcysts with tota l measurement of 6 x 3 mm. There are no other focal findings in all 4 quadrants of the right breast. Scanning of the ipsilateral axilla reveals no significant adenopathy. IMPRESSION: 1. Finding on the mammogram corresponds to a conglomeration microcysts at 6 o'clock position. Appropriate follow-up as discussed by myself with the patient today is repeat this ultrasound in 6 mo nths. At that time I recommend she undergo bilateral breast ultrasound given the density of her fibr oglandular tissue on mammography. The patient was informed of these findings and recommendations by myself prior to leaving the departm ent today. BI-RADS Category 3 - 6 month - Probably Benign Finding: Recommend follow-up mammography in 6 months Breast Density - Category C - Heterogeneously dense Breast density Category C or D implies that the patient has dense breast tissue. Dense breast tissue can make it harder to find cancer on a mammogram. Dense breast tissue is also associated with an incr eased risk of breast cancer. This information about the result of the mammogram report was provided to the patient to raise their awareness. Use this report when you speak with the patient about their risks for breast cancer, which includes their family history. At that time, you may recommend additional screening tests (Ultrasoun d or MRI) as these tests may add significant information. A negative radiographic report should not delay biopsy if a dominant or clinically suspicious mass is present. Up to ten percent of cancers are not identified on mammography. A negative report may reinforce clinical impression. Adenosis and dense breasts may obscure an underlying neoplasm. False positive reports average 6 to 10%. Patient will receive a letter notifying them of these results.
== END 2024-01-22 02:15 ==
LOC: DI 01:55
PROVIDERS: PCP Physician Assistant Medical; Visit Provider Obstetrics & Gynecology
DX: R92.8 Other abnormal and inconclusive findings on diagnostic imaging of breast (principal); R92.333 Mammographic heterogeneous density, bilateral breasts; Z12.31 Encounter for screening mammogram for malignant neoplasm of breast
CPT/HCPCS: 76642; 77063; 77067

== ENCOUNTER 2024-07-22 02:13 | Outpatient (CLI) | payer OTHER, SELFPAY ==
--- NOTE | 2024-07-22 13:15 | DI.US_ITS ---
Exam(s) US BREAST LT COMPLETE US BREAST RT COMPLETE MG MAMMO DIAGNOSTIC BI EXAM: MG MAMMO DIAGNOSTIC BI and bilateral breast ultrasound complete CLINICAL HISTORY: 6 month f/u R breast. TECHNIQUE: Craniocaudal and mediolateral oblique Full Field Digital Mammography views with Computer Aided Diagnosis followed by Tomosynthesis and bilateral complete breast ultrasound. All 4 quadrants of the breast were evaluated sonographically including the axilla and the subareolar regions bilatera lly. COMPARISON: Comparison is made with prior examinations. FINDINGS: Mammography/Tomosynthesis: Masses/Architectural Distortion: There are several small well-circumscribed nodules in both breasts. The nodule in the upper outer quadrant of the left breast appears stable. No new nodules or areas o f architectural distortion are present. Microcalcifictions: No suspicious pleomorphic-type are seen. Skin Thickening/Nipple Retraction: None. Complete bilateral breast US: Echotexture: Normal appearance of the glandular tissue. Shadowing: No suspicious foci. Cyst: The previously seen cluster of cysts at the 6 o'clock position in the right breast have decreas ed in size compared to the prior examination. On the right, there are cluster of cysts seen around t he 6 and 7 o'clock position. There is also a hypoechoic 0.5 cm nodule at the 10 o'clock position 12 cm from the nipple which may represent a benign lesion such as a cyst or small intraparenchymal lymph node. Solid lesions: In the left breast, there is a hypoechoic 0.7 x 0.5 x 0.6 cm nodule at the 2 o'clock p osition 9 cm from the nipple. This may correspond to a nodule seen in the upper outer quadrant of th e left breast which appears stable on the mammograms. Ductal dilation: Benign-appearing ducts are seen at the 9 o'clock position of the right breast 3 cm f rom the nipple. IMPRESSION: 1. No definite air-filled dense for malignancy is seen at this time. 2. A six-month follow-up mammogram and bilateral breast ultrasound is requested for re-evaluation. 3. The findings were discussed with the patient on the date of the examination. BI-RADS Category 3 - 6 month - Probably Benign Finding: Recommend follow-up imaging in 6 months Breast Density - Category C - The breast are heterogeneously dense, which may obscure small masses. Breast density Category C or D implies that the patient has dense breast tissue. Dense breast tissue can make it harder to find cancer on a mammogram. Dense breast tissue is also associated with an incr eased risk of breast cancer. This information about the result of the mammogram report was provided to the patient to raise their awareness. Use this report when you speak with the patient about their risks for breast cancer, which includes their family history. At that time, you may recommend additional screening tests (Ultrasoun d or MRI) as these tests may add significant information. A negative radiographic report should not delay biopsy if a dominant or clinically suspicious mass is present. Up to ten percent of cancers are not identified on mammography. A negative report may reinforce clinical impression. Adenosis and dense breasts may obscure an underlying neoplasm. False positive reports average 6 to 10%. Patient will receive a letter notifying them of these results.
== END 2024-07-22 02:33 ==
PROVIDERS: PCP Physician Assistant Medical; Visit Provider Obstetrics & Gynecology
DX: Z12.31 Encounter for screening mammogram for malignant neoplasm of breast; R92.8 Other abnormal and inconclusive findings on diagnostic imaging of breast; N60.11 Diffuse cystic mastopathy of right breast
CPT/HCPCS: 76642; 77062; 77066; G0279

== ENCOUNTER 2024-12-24 10:25 | Outpatient (REF) | payer OTHER, SELFPAY ==
--- NOTE | 2024-12-24 09:00 | PAPFT_PTH ---
PATIENT: Aida Gonzales LOC: [facility] U#:[id number] AGE/SX: 49/F ROOM: RE12/24/[address]: Felicita Verde MD : 1975 BED: DIS: 12/24/2024 SPEC #: [id number] RECD: 12/24/24 12:52 STATUS: ASHLY [place] #: [id number] ANDRES: 12/24/24 09:[address]: Felicita Verde DEPT: [facility] Cytology RECD BY: Teri Barcenas ENTERED: 12/24/24 12:52 SP TYPE: PAPFT OTHR DR: Michael Anaya Tissues: 1 - CX/ENDOCX FOR PAP SMEARS Procedures: PAP THIN PREP/UVM Screening HPV DNA PROBE Comments: [id number] (HPV 16 & 18/45)
== END 2024-12-24 10:26 | disposition home or self-care (01) ==
LOC: LBN 10:25
PROVIDERS: PCP Physician Assistant Medical; Visit Provider Obstetrics & Gynecology
DX: Z12.4 Encounter for screening for malignant neoplasm of cervix (principal)
CPT/HCPCS: 88142; 87624

== ENCOUNTER → 2025-01-21 05:47 | Outpatient (CLI) | payer OTHER, SELFPAY ==
--- NOTE | 2025-01-21 08:15 | DI.MAMMO_ITS ---
Exam(s) MG MAMMO DIAGNOSTIC BI EXAM: MG MAMMO DIAGNOSTIC BI CLINICAL HISTORY: 6 month f/u. COMPARISON: MG MAMMO DIAGNOSTIC BI from 07/22/2024 US US BREAST LT COMPLETE from 07/22/2024 US US BREAST RT COMPLETE from 07/22/2024 Exams back to 2014 TECHNIQUE: Craniocaudal and mediolateral oblique Full Field Digital Mammography views of with Computer Aided Diagnosis followed by Tomosynthesis and breast ultrasound. FINDINGS: Mammography/Tomosynthesis: Masses: Stable circumscribed bilateral nodules. Architectural Distortion: None seen. Microcalcifications: No suspicious pleomorphic-type are seen. Skin Thickening/Nipple Retraction: None. IMPRESSION: 1. No evidence of malignancy is noted. 2. Unless there is more urgent need, follow-up screening mammography is recommended, as per [place] [employer] guidelines. BI-RADS Category 2 - Benign Findings Breast Density - Category B - There are scattered areas of fibroglandular density. Breast density Category C or D implies that the patient has dense breast tissue. Dense breast tissue can make it harder to find cancer on a mammogram. Dense breast tissue is also associated with an increased risk of breast cancer. This information about the result of the mammogram report was provided to the patient to raise their awareness. Use this report when you speak with the patient about their risks for breast cancer, which includes their family history. At that time, you may recommend additional screening tests (Ultrasound or MRI) as these tests may add significant information. A negative radiographic report should not delay biopsy if a dominant or clinically suspicious mass is present. Up to ten percent of cancers are not identified on mammography. A negative report may reinforce clinical impression. Adenosis and dense breasts may obscure an underlying neoplasm. False positive reports average 6 to 10%. Patient will receive a letter notifying them of these results.
== END ==
LOC: DI 05:47
PROVIDERS: PCP Physician Assistant Medical; Visit Provider Nurse Practitioner Women's Health
DX: R92.8 Other abnormal and inconclusive findings on diagnostic imaging of breast (principal); Z12.31 Encounter for screening mammogram for malignant neoplasm of breast
CPT/HCPCS: 77062; 77066; G0279